=== PATIENT | female | born 1975 | race Two or more races ===

== ENCOUNTER 2025-07-28 12:00 | Day surgery (SDC) | payer MEDICAID, SELFPAY ==
[2025-07-28] VITALS (10 sets, daily range): BP systolic 113–151; BP diastolic 67–108; PULSE 56–86; RESP 11–20; TEMP 36.7–36.8; O2SAT 95–99; BMI 34.8
--- NOTE | 2025-07-28 11:36 | ESHP_ITS ---
RE: LENNY JOHNSON : 1975 DATE OF ADMISSION: 07/28/2025 DATE OF SURGERY: 07/28/2025 HISTORY OF PRESENT ILLNESS: This patient is a 49-year-old female who only speaks Georgian. She was seen back in May at [facility] for colonoscopy. The patient denies any history of rectal bleeding, but had a positive FOBT. She has no history of colon cancer in the family. PAST MEDICAL HISTORY: Her past medical history consists of diabetes and hypertension. PAST SURGICAL HISTORY: Past surgery consisted of tubal ligation and appendectomy. PHYSICAL EXAMINATION: GENERAL: Physical examination revealed an obese female who is about 5 feet 4 inches tall, weighing 206 pounds. HEENT: Examination of the head, eyes, ears, nose, and throat were normal. Lungs: Normal. Heart: Sinus rhythm with no murmurs. Abdomen: Negative. IMPRESSION: 1. Positive FOBT. 2. Diabetes mellitus. 3. Hypertension. 4. Mild obesity. COURSE OF ACTION: The patient will undergo colonoscopy. Procedure was explained to her in detail using an civil lawyer and she is agreeable. DT: 10:32:31 TT: 10:47:00 Ref: [id number] - TID: [id number]
[2025-07-28] MEDS: RINGERS LACTATED 500 ML 500 ML 125 ML IV (13:21)
[2025-07-28] MEDS: fentaNYL CIT INJ 50 mCg/ML AMP 2ML (ASD USE ONLY) IVP (13:28)
[2025-07-28] MEDS: MIDAZOLAM INJ 1 MG/ML VIAL 2 ML (ASD USE ONLY) 2 MG IVP (13:30)
== END 2025-07-28 14:20 | disposition home or self-care (01) ==
PROVIDERS: PCP Family Medicine; Referring Provider Surgery; Visit Provider Surgery
PROC: 0DBE8ZX Excision of Large Intestine, Via Natural or Artificial Opening Endoscopic, Diagnostic (ICD-10-PCS; CPT 45380; principal; 2025-07-28 14:30)
DX: R19.5 Other fecal abnormalities (principal); E11.9 Type 2 diabetes mellitus without complications; I10 Essential (primary) hypertension; E66.9 Obesity, unspecified; Z68.34 Body mass index [BMI] 34.0-34.9, adult
CPT/HCPCS: 45378; 81025; A4217; A4649; J1200; J2250; J3010; J7120

== ENCOUNTER → 2025-08-16 | Outpatient (CLI) | payer MEDICAID, SELFPAY ==
--- NOTE | 2025-08-16 14:45 | XR_ITS ---
Examination: Screening digital mammography, bilateral Computer aided detection 3-D breast Tomosynthesis, bilateral Date and time of exam: August 16, 2025, 1632 hours Indication: Screening Technique: Nonmagnified MLO, CC views of the breasts to been obtained, reconstructed from 3-D Tomosynthesis images. R2 computer aided detection program utilized for evaluation of suspicious masses and/or abnormal calcifications. 3-D Tomosynthesis images obtained. Findings: The breasts are heterogeneously dense, which may obscure small masses 13 mm nodule nipple level left breast on the CC view, likely upper left breast on the MLO view Impression: BI-RADS Category 0: Incomplete: Need additional imaging evaluation Recommend follow-up spot tomographic views of 13 mm nodule nipple level left breast on the CC view likely upper left breast on the MLO view as well as bilateral breast sonography to complete the workup.
== END | disposition home or self-care (01) ==
LOC: CDIM 14:26
PROVIDERS: Referring Provider Nurse Practitioner Women's Health; Visit Provider Nurse Practitioner Women's Health
DX: Z12.31 Encounter for screening mammogram for malignant neoplasm of breast (principal); N63.20 Unspecified lump in the left breast, unspecified quadrant; R92.8 Other abnormal and inconclusive findings on diagnostic imaging of breast
CPT/HCPCS: 77063; 77067